=== PATIENT | male | born 1970 | race American Indian/Alaskan Native ===

== ENCOUNTER 2020-10-02 15:39 | Emergency (ER) | payer OTHER ==
--- NOTE | 2020-10-02 18:11 | Emergency Department Report ---
Blank Doc - Documentation Documentation: 49-year-old male that was sent by PCP for abnormal EKG results. Stated has left shoulder pains and went to PCP which had abnormal EKG results and sent to ED. Otherwise denies any other complaints or symptoms. 1- This is a initial triage assessment/medical screening only. Full assessment and work-up will be completed once the patient is in proper hospital gown, ED bed and in a private room setting. This initial assessment/diagnostic orders/clinical plan/ treatment(s) is/are subject to change based on pt's health status, clinical progression and re-assessment by fellow clinical providers in the ED. Further treatment and workup at subsequent clinical providers discret ion. Patient/guardians urged not to elope from ED as their condition may be serious if not clinically assessed and managed. 2-cardiac workup
[2020-10-02 18:18] VITALS: BP 139/87
--- NOTE | 2020-10-02 18:36 | XRay Report ---
CHEST 2 VIEWS INDICATION / CLINICAL INFORMATION: Chest Pain. COMPARISON: 05/28/2013 FINDINGS: SUPPORT DEVICES: None. HEART / MEDIASTINUM: No significant abnormality. LUNGS / PLEURA: No significant pulmonary or pleural abnormality. No pneumothorax. ADDITIONAL FINDINGS: No significant additional findings. IMPRESSION: 1. No acute findings. Signer Name: Cem Martinez MD Signed: 10/02/2020 6:32 PM Workstation Name: [id number]
[2020-10-02 18:47] LABS: Basophils % (Auto) 0.4 % (0.0-1.8); Eosinophils # (Auto) 0.1 K/mm3 (0.0-0.4); Eosinophils % (Auto) 1.3 % (0.0-4.3); Hematocrit 46.3 % (35.5-45.6); Hemoglobin 15.5 gm/dl (11.8-15.2); Lymphocytes # (Auto) 1.3 K/mm3 (1.2-5.4); Lymphocytes % (Auto) 20.1 % (13.4-35.0); Mean Corpuscular HGB Conc 34 % (32-34); Mean Corpuscular Volume 90 fl (84-94); Monocytes # (Auto) 0.6 K/mm3 (0.0-0.8); Monocytes % (Auto) 9.8 % (0.0-7.3); Platelet Count 255 K/mm3 (140-440); Red Blood Count 5.14 M/mm3 (3.65-5.03); Red Cell Distribution Width 14.3 % (13.2-15.2)
[2020-10-02 18:53] LABS: Alanine Aminotransferase 22 units/L (7-56); Albumin 4.5 g/dL (3.9-5); BUN/Creatinine Ratio 17; Blood Urea Nitrogen 19 mg/dL (9-20); Calcium 9.6 mg/dL (8.4-10.2); Hemolysis Index 13
[2020-10-02 18:58] LABS: INR 0.96 (0.87-1.13); Partial Thromboplastin Time 32.4 Sec. (24.2-36.6)
--- NOTE | 2020-10-02 20:49 | Emergency Department Report ---
ED Extremity Problem HPI - General Chief complaint: Extremity Injury, Upper Stated complaint: CHEST PAINS/EKG Time Seen by Provider: 10/02/20 18:08 Source: patient Mode of arrival: Ambulatory Limitations: No Limitations - History of Present Illness Initial comments: Patient is a 49-year-old -[place] male with a history of hypertension and mpu-jqheefh-pyidtexyr diabetes who presents to the ED with complaint of acute onset persistent nontraumatic left lateral neck pain that radiates to the left shoulder and distal to the left hand and fingers intermittently for the last 1 month, worse in the last 1 week. Patient states that the pain is better at rest but worse with movements. Patient states that in the last 2 days he noticed that the pain was getting worse and that it now radiates to his mid posterior thoracic area as well as the left pectoralis major muscle area of the chest with each episode of radiating neck pain. Patient also complaints of persistent headache whenever he experiences left lateral neck pain and numbness and tingling of left arm with each episode of left lateral neck pain. Patient denies dizziness, syncope, diaphoresis, jaw pain, dysphagia, dysphonia, sore throat, change in vision, nausea and vomiting, traumatic injury, fall, heavy lifting, shortness of breath, abdominal pain, cough or fever and chills. MD Complaint: extremity pain (Left shoulder pain), joint paint (left shoulder pain), other (left lateral cervical pain) -: Sudden, month(s) (1) Location: left, upper extremity (left shoulder ), other (left lateral cervical pain) History of Same: Yes -: Yes arthralgia (left shoulder pain), No fever, No associated dyspnea, No associated chest pain Radiation: distal, other (left lateral cervical pain) Severity scale (0 -10): 8 Quality: aching, sharp Consistency: constant Improves with: rest Worsens with: weight bearing, palpation Associated Symptoms: denies other symptoms, arthralgias (left lateral cervical pain that radiates to the left shoulder). denies: chest pain, shortness of breath, fever, myalgias, rash - Related Data Home Medications Medication Instructions Recorded Confirmed Last Taken Glimepiride [Amaryl] 4 mg PO QAM 10/27/12 05/27/13 05/26/13 Losartan/Hydrochlorothiazide 1 each PO QDAY 10/27/12 05/27/1305/26/14 [Hyzaar 100-12.5 TAB] Metformin HCl [metFORMIN ER] 500 mg PO BID 10/27/12 05/27/13 05/26/13 Previous Rx's Medication Instructions Recorded Last Taken Type Clopidogrel [Plavix] 75 mg PO QDAY #90 tablet 05/29/13 Unknown Rx Metoprolol [Lopressor TAB] 50 mg PO BID #60 tablet 05/29/13 Unknown Rx Nitroglycerin [Nitro Dur] 0.4 mg TD DAILY@0600 #30 patch 05/29/13 Unknown Rx Rosuvastatin (Nf) [Crestor] 20 mg PO QHS #90 tablet 05/29/13 Unknown Rx Gabapentin 300 mg PO Q12H #30 cap 10/02/20 Unknown Rx traMADoL [Ultram] 50 mg PO Q6HR PRN #12 tablet 10/02/20 Unknown Rx Allergies Allergy/AdvReac Type Severity Reaction Status Date / Time No Known Allergies Allergy Verified 10/02/20 18:15 ED Review of Systems ROS: Stated complaint: CHEST PAINS/EKG Other details as noted in HPI Constitutional: denies: chills, fever Eyes: denies: eye pain, eye discharge, vision change ENT: denies: ear pain, throat pain Respiratory: denies: cough, shortness of breath, wheezing Cardiovascular: denies: chest pain, palpitations Endocrine: no symptoms reported Gastrointestinal: denies: abdominal pain, nausea, vomiting, diarrhea Genitourinary: denies: urgency, dysuria Musculoskeletal: arthralgia (left shoulder), other (left lateral cervical muscle pain). denies: back pain, joint swelling Skin: denies: rash, lesions Neurological: denies: headache, weakness, paresthesias Psychiatric: denies: anxiety, depression Hematological/Lymphatic: denies: easy bleeding, easy bruising ED Past Medical Hx - Past Medical History Hx Hypertension: Yes Hx Congestive Heart Failure: No Hx Diabetes: Yes Hx Asthma: No Hx COPD: No Additional medical history: high cholest - Surgical History Hx Coronary Stent: Yes - Social History Substance Use Type: None - Medications Home Medications: Home Medications Medication Instructions Recorded Confirmed Last Taken Type Glimepiride [Amaryl] 4 mg PO QAM 10/27/12 05/27/13 05/26/13 History Losartan/Hydrochlorothiazide 1 each PO QDAY 10/27/12 05/27/13 05/26/13 History [Hyzaar 100-12.5 TAB] Metformin HCl [metFORMIN ER] 500 mg PO BID 10/27/12 05/27/13 05/26/13 History Clopidogrel [Plavix] 75 mg PO QDAY #90 tablet 05/29/13 Unknown Rx Metoprolol [Lopressor TAB] 50 mg PO BID #60 tablet 05/29/13 Unknown Rx Nitroglycerin [Nitro Dur] 0.4 mg TD DAILY@0600 #30 patch 05/29/13 Unknown Rx Rosuvastatin (Nf) [Crestor] 20 mg PO QHS #90 tablet 05/29/13 Unknown Rx Gabapentin 300 mg PO Q12H #30 cap 10/02/20 Unknown Rx traMADoL [Ultram] 50 mg PO Q6HR PRN #12 tablet 10/02/20 Unknown Rx ED Physical Exam - General Limitations: No Limitations General appearance: alert, in no apparent distress - Head Head exam: Present: atraumatic, normocephalic, normal inspection - Eye Eye exam: Present: normal appearance, PERRL, EOMI Pupils: Present: normal accommodation - ENT ENT exam: Present: normal exam, normal orophraynx, mucous membranes moist, TM's normal bilaterally, normal external ear exam - Neck Neck exam: Present: normal inspection, tenderness (palpable left lateral cervical paraspinal and sternocleidomastoid muscle tenderness), full ROM - Respiratory Respiratory exam: Present: normal lung sounds bilaterally. Absent: respiratory distress, wheezes, rales, rhonchi, chest wall tenderness, accessory muscle use, decreased breath sounds, prolonged expiratory - Cardiovascular Cardiovascular Exam: Present: regular rate, normal rhythm, normal heart sounds. Absent: systolic murmur, diastolic murmur, rubs, gallop - GI/Abdominal GI/Abdominal exam: Present: soft, normal bowel sounds. Absent: distended, tenderness, guarding, rebound, hyperactive bowel sounds, hypoactive bowel sounds - Extremities Exam Extremities exam: Present: normal inspection, full ROM, tenderness (Palpable left shoulder tenderness), normal capillary refill. Absent: pedal edema, joint swelling, calf tenderness - Back Exam Back exam: Present: normal inspection, full ROM. Absent: tenderness, CVA tenderness (R), CVA tenderness (L), muscle spasm, paraspinal tenderness, vertebral tenderness - Neurological Exam Neurological exam: Present: alert, oriented X3, CN II-XII intact, normal gait, reflexes normal - Psychiatric Psychiatric exam: Present: normal affect, normal mood - Skin Skin exam: Present: warm, dry, intact, normal color. Absent: rash ED Course Vital Signs 10/02/20 18:13 Temperature 98.8 F Pulse Rate 92 H Respiratory 20 Rate Blood Pressure 139/87 O2 Sat by Pulse 96 Oximetry ED Medical Decision Making - Lab Data Result diagrams: 10/02/20 18:17 10/02/20 18:17 - EKG Data EKG shows normal: sinus rhythm Rate: normal - EKG Data Interpretation: normal EKG 10/02/20 21:21 EKG shows normal sinus rhythm with a ventricular rate of 90 beats a minute and an old inferior infarct. There is however no acute ST or T wave abnormalities - Radiology Data Radiology results: report reviewed, image reviewed [facility] [address] [place] [address] XRay Report Signed Patient: KIMBERLI VANEGAS MR#: [id number] : 1970 Acct:[id number] Age/Sex: 49 / M ADM Date: 10/02/20 Loc: ED Attending Dr: Ordering Physician: YULI VINSON NP Date of Service: 10/02/20 Procedure(s): XR chest routine 2V Accession Number(s): [id number] cc: YULI VINSON NP Fluoro Time In Minutes: CHEST 2 VIEWS INDICATION / CLINICAL INFORMATION: Chest Pain. COMPARISON: 05/28/2013 FINDINGS: SUPPORT DEVICES: None. HEART / MEDIASTINUM: No significant abnormality. LUNGS / PLEURA: No significant pulmonary or pleural abnormality. No pneumothorax. ADDITIONAL FINDINGS: No significant additional findings. IMPRESSION: 1. No acute findings. Signer Name: Cem Martinez MD Signed: 10/02/2020 6:32 PM Workstation Name: [id number] Transcribed By: SS Dictated By: Cem Martinez MD Electronically Authenticated By: Cem Martinez MD Signed Date/Time: 10/02/201831 DD/ 30 TD/TT: - Medical Decision Making This is a 49-year-old -[place] male with a history of hypertension and rnl-tulqsik-knwnmalog diabetes who presents to the ED with complaint of acute onset persistent nontraumatic left lateral neck pain that radiates to the left shoulder and distal to the left hand and fingers intermittently for the last 1 month, worse in the last 1 week. Patient states that the pain is better at rest but worse with movements. Patient states that in the last 2 days he noticed that the pain was getting worse and that it now radiates to his mid posterior thoracic area as well as the left pectoralis major muscle area of the chest with each episode of radiating neck pain. Patient also complaints of persistent headache whenever he experiences left lateral neck pain and numbness and tingling of left arm with each episode of left lateral neck pain. Patient states that he had presented for treatment of his symptoms at an urgent care clinic but was transferred to the ED for evaluation. In the ED, patient is alert and oriented x3 and is not in any distress. The EKG shows normal sinus rhythm with a ventricular rate of 90 bpm, and old inferior infarct but no acute ST or T wave abnormalities. Chest x-ray shows no acute cardiopulmonary abnormalities or pneumonitis. Lab test results were reviewed and are all nonactionable. Patient symptoms have been persistent for 1 month, and the lab test results, EKG report and chest x-ray report are nonactionable. Therefore the patient symptoms are likely noncardiac related given that the patient has a heart score of 3. Based on the history and physical exam findings, patient symptoms are likely due to cervical radiculopathy versus cervical muscle strain versus left shoulder tendinitis. Patient had received Toradol injection for pain at the urgent care clinic prior to arrival in the ED and reports that the pain is well controlled with medications. Patient was therefore discharged home on medications for pain and advised to follow-up with his primary care physician in 5 to 7 days for reevaluation. Patient was advised to return to the ED immediately if symptoms get worse. - Differential Diagnosis cervical radiculopathy; muscle strain; tendonitis; cervical sprain; ACS Critical care attestation.: If time is entered above; I have spent that time in minutes in the direct care of this critically ill patient, excluding procedure time. ED Disposition Clinical Impression: Cervical radiculopathy, Left shoulder tendinitis Muscle strain of left shoulder region Qualifiers: Encounter type: initial encounter Qualified Code(s): S46.912A - Strain of unspecified muscle, fascia and tendon at shoulder and upper arm level, left arm, initial encounter Disposition: HOME / SELF CARE / HOMELESS Is pt being admited?: No Does the pt Need Aspirin: No Condition: Stable Instructions: Cervical Radiculopathy, [id number], Muscle Strain, [id number] Additional Instructions: All lab test results were reviewed and are all nonactionable. Chest x-ray shows no acute cardiopulmonary abnormalities or pneumonitis. Based on the history, physical exam findings as well as lab test results, EKG and chest x-ray reports, your symptoms are likely due to cervical radiculopathy which is an impingement of the left lateral nerve from your neck that innervates your left arm. This is likely the cause of your left lateral neck pain that radiates with your left shoulder and distally to your left hand and fingers. Therefore take medications with food, drink plenty of fluids and follow-up with your primary care physician in 5 to 7 days for reevaluation. Return to the ED immediately if symptoms get worse. Prescriptions: Gabapentin 300 mg PO Q12H #30 cap traMADoL [Ultram] 50 mg PO Q6HR PRN #12 tablet PRN Reason: Pain Referrals: [facility] [Provider Group] - 3-5 Days Forms: Work/School Release Form(ED) Time of Disposition: 20:59 Print Language: LIBYAN
--- NOTE | 2020-10-03 10:19 | Electrocardiograph Report ---
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
== END 2020-10-02 22:31 | disposition home or self-care (01) ==
LOC: ED 15:39
DX: S46.912A Strain of unspecified muscle, fascia and tendon at shoulder and upper arm level, left arm, initial encounter (principal); M54.12 Radiculopathy, cervical region; M77.8 Other enthesopathies, not elsewhere classified; I10 Essential (primary) hypertension; E11.9 Type 2 diabetes mellitus without complications; E78.00 Pure hypercholesterolemia, unspecified; Z79.899 Other long term (current) drug therapy; X58.XXXA Exposure to other specified factors, initial encounter; Y93.89 Activity, other specified; Y92.89 Other specified places as the place of occurrence of the external cause; Y99.8 Other external cause status
CPT/HCPCS: 36415; 71046; 80053; 83735; 84484; 85025; 85610; 85730; 93005